=== PATIENT | female | born 1995 | race Caucasian/White ===

== ENCOUNTER 2023-11-29 08:00 | Outpatient (CLI) | payer OTHER ==
[2023-11-30 00:19] LABS: BACTERIAL VAGINOSIS DNA NEGATIVE (NEGATIVE); CANDIDA GLABRATA DNA NEGATIVE (NEGATIVE); CANDIDA GROUP DNA POSITIVE (NEGATIVE); CANDIDA KRUSEI DNA NEGATIVE (NEGATIVE); TRICHOMONAS VAGINALIS DNA NEGATIVE (NEGATIVE)
== END 2023-11-29 23:59 | disposition home or self-care (01) ==
LOC: LAB.N 08:00
PROVIDERS: ATTEND Nurse Practitioner
DX: L29.8 Other pruritus (principal)
CPT/HCPCS: 81514